=== PATIENT | female | born 1995 | race African-American/Black ===

== ENCOUNTER → 2020-04-19 10:18 | Outpatient (CLI) | payer OTHER, SELFPAY ==
--- NOTE | ~2020-04-19 | US_ITS ---
EXAMINATION: US transvaginal DATE: 04/19/2020 10:51 INDICATION: Pelvic pain Comparison:No prior studies for comparison. TECHNIQUE: Multiple endovaginal sonographic images of the pelvis performed. FINDINGS: The uterus measures 7.7 x 4.9 x 4.6 cm. The endometrial complex measures 12 mm. The right ovary measures 3.6 x 3.5 x 1.7 cm and the left ovary measures 2 x 2.2 x 1.1 cm. There are small follicles in each ovary. There is trace free fluid in the pelvis. There are no abnormal masses seen on either side. IMPRESSION: 1. Mild endometrial thickening. Reviewed, dictated and finalized at location A. N FORMING MACHINE OPERATOR
== END ==
PROVIDERS: Visit Provider Physician Assistant
DX: R10.2 Pelvic and perineal pain (principal)
CPT/HCPCS: 76830

== ENCOUNTER 2020-07-14 12:02 | Outpatient (CLI) | payer OTHER, SELFPAY ==
--- NOTE | ~2020-07-14 | US_ITS ---
EXAMINATION: US venous doppler [facility] DATE: 07/14/2020 12:46 INDICATION: Z bilateral lower limb swelling TECHNIQUE: Marsh scale images without and with compression and Doppler images of the bilateral lower e xtremity veins were obtained. COMPARISON: None FINDINGS: The right common femoral vein, profunda femoral vein, femoral vein, popliteal vein, peroneal trunk, p osterior tibial veins, and greater saphenous vein are patent. The left common femoral vein, profunda femoral vein, femoral vein, popliteal vein, peroneal trunk, po sterior tibial veins, and greater saphenous vein are patent. IMPRESSION: 1. Patent bilateral lower extremity veins. No evidence of deep venous thrombosis. Reviewed, dictated and finalized at location A. ERCIAL ELECTRICIAN IMPRESSION: 1. Patent bilateral lower extremity veins. No evidence of deep venous thrombosi s.
[2020-07-14 12:28] LABS: Basophils Absolute Auto 0.1 K/mm3 (0.0-0.1); Basophils Percent Auto 0.7 % (0.2-1.2); Eosinophils Percent Auto 0.6 % (0-4.4); Hematocrit 33.9 % (37.0-47.0); Hemoglobin 11.7 g/dL (12.0-15.0); Immature Granulocyte Absolute 0.02 K/mm3 (0.00-0.031); Immature Granulocyte Percent A 0.3 % (0-0.5); Lymphocytes Absolute Auto 1.46 K/mm3 (0.9-3.2); Lymphocytes Percent Auto 20.5 % (18.3-44.2); Mean Corpuscular HGB Conc 34.5 g/dl (32-36); Mean Corpuscular Hemoglobin 30.2 pg (26-34); Mean Corpuscular Volume 87.4 fl (80-100); Mean Platelet Volume 11.1 fl (7.4-10.4); Monocytes Absolute Auto 0.5 K/mm3 (0.1-0.6); Monocytes Percent Auto 6.6 % (2.6-8.5); Neutrophils Absolute Auto 5.1 K/mm3 (1.3-6.7); Neutrophils Percent Auto 71.3 % (45.5-73.1); Platelet Count Result 281 k/mm3 (150-375); Red Blood Count 3.88 M/mm3 (4.2-5.4); Red Cell Distribution Width 11.9 % (11.5-14.5); White Blood Count 7.1 K/mm3 (4.5-10.0)
[2020-07-14 12:37] LABS: Anion Gap 6 mmol/L (8-16); Blood Urea Nitrogen 10 mg/dL (7-17); Carbon Dioxide 24 mmol/L (22-30); Chloride 107 mmol/L (98-107); Estimated Glomerular Filt Rate > 60; Glucose 85 mg/dL (65-105); Potassium 3.7 mmol/L (3.4-5.0); Sodium 137 mmol/L (137-145)
[2020-07-14 12:50] LABS: D Dimer 2.35 ug/mL (<0.48)
== END 2020-07-14 12:03 | disposition home or self-care (01) ==
PROVIDERS: PCP Physician Assistant; Visit Provider Physician Assistant
DX: M79.89 Other specified soft tissue disorders (principal)
CPT/HCPCS: 36415; 80048; 85025; 85380; 93970

== ENCOUNTER 2020-07-15 11:07 | Outpatient (CLI) | payer OTHER, SELFPAY ==
--- NOTE | ~2020-07-15 | CT_ITS ---
EXAMINATION: CTA chest PE protocol DATE: 07/15/2020 13:10 INDICATION: Lower limb swelling TECHNIQUE: Computed tomography angiography (CTA) of the chest was performed with 100 mL Omnipaque-350 intravenous contrast timed to evaluate the pulmonary arteries. Coronal maximum intensity projection 3D-reconstructions were created by the technologist. The dose-length product (DLP) was 252.11 mGy-cm. Automated exposure control and iterative reconstruction technique were employed. COMPARISON: None. FINDINGS: The pulmonary arteries are well-opacified. There are pulmonary emboli in subsegmental pulmo nary arterial branches of the lower lobes. The lungs are free of acute opacities. There is no pleural effusion or pneumothorax. No pathologically enlarged thoracic lymph nodes are identified. The heart size is normal. Triangular soft tissue density in the anterior mediastinum likely reflects residual t hymus. IMPRESSION: 1. Pulmonary emboli in subsegmental branches of the lower lobes. Reviewed, dictated and finalized at location A. NCIAL COMPLIANCE MANAGER
[2020-07-15 12:00] LABS: Beta HCG Quantitative < 2.39 mIU/ML
== END 2020-07-15 11:08 | disposition home or self-care (01) ==
PROVIDERS: PCP Physician Assistant; Visit Provider Physician Assistant
DX: Z30.09 Encounter for other general counseling and advice on contraception (principal); I26.99 Other pulmonary embolism without acute cor pulmonale
CPT/HCPCS: 36415; 71275; 84702; Q9967

== ENCOUNTER 2020-07-15 13:30 | Observation (INO) | payer OTHER, SELFPAY ==
[2020-07-15] VITALS (10 sets, daily range): BP systolic 108–151; BP diastolic 57–88; PULSE 66–89; RESP 14–24; TEMP 36.5–36.8; O2SAT 21–100
--- NOTE | 2020-07-15 13:55 | ECG_ITS ---
Measurements Intervals [place] Rate: 72 P: 70 [place]: 159 QRS: 59 QRSD: 86 T: 44 QT: 372 QTc: 410 Interpretive Statements SINUS RHYTHM BASELINE ARTIFACT- I, AVL, V2 NORMAL ECG Electronically Signed On 07-15-2020 14:15:28 CONTENT ASSISTANT by Chucho Cameron D.O.
[2020-07-15 14:22] LABS: Basophils Percent Auto 0.3 % (0.2-1.2); Eosinophils Absolute Auto 0.1 K/mm3 (0-0.3); Eosinophils Percent Auto 0.7 % (0-4.4); Hematocrit 37.3 % (37.0-47.0); Hemoglobin 12.7 g/dL (12.0-15.0); Immature Granulocyte Absolute 0.02 K/mm3 (0.00-0.031); Immature Granulocyte Percent A 0.2 % (0-0.5); Lymphocytes Absolute Auto 2.24 K/mm3 (0.9-3.2); Lymphocytes Percent Auto 24.9 % (18.3-44.2); Mean Platelet Volume 11.4 fl (7.4-10.4); Monocytes Absolute Auto 0.6 K/mm3 (0.1-0.6); Monocytes Percent Auto 6.4 % (2.6-8.5); Neutrophils Absolute Auto 6.1 K/mm3 (1.3-6.7); Neutrophils Percent Auto 67.5 % (45.5-73.1); Platelet Count Result 293 k/mm3 (150-375); Red Blood Count 4.24 M/mm3 (4.2-5.4); Red Cell Distribution Width 12.2 % (11.5-14.5)
[2020-07-15 14:24] LABS: Add Urine Microscopic? NO; Appearance Urine Clear (Clear); Bilirubin Urine Negative (Negative); Blood Urine Negative (Negative); Color Urine Yellow (Yellow); Glucose Urine UA Negative (Negative); Ketones Urine Negative (Negative); Leukocyte Esterase Ur Negative LEU/UL (Negative); Nitrate Urine Negative (Negative); Protein Urine Negative (Negative); Specific Grav Ur > 1.060 (1.001-1.035); Urobilinogen Urine Negative mg/dL (<2.0)
[2020-07-15 14:29] LABS: Prothrombin Time 13.3 Seconds (11.1-14.7)
[2020-07-15 14:35] LABS: Alanine Aminotransferase 16 U/L (4-35); Albumin Level 4.2 g/dL (3.5-5.1); Alkaline Phosphatase 47 U/L (38-126); Anion Gap 12 mmol/L (8-16); Aspartate Amino Transferase 28 U/L (14-36); Bilirubin,Total 0.5 mg/dL (0.2-1.3); Blood Urea Nitrogen 8 mg/dL (7-17); Carbon Dioxide 23 mmol/L (22-30); Chloride 101 mmol/L (98-107); Estimated CRCL calculation 111 ml/min; Estimated Glomerular Filt Rate > 60; Glucose 84 mg/dL (65-105); Potassium 3.7 mmol/L (3.4-5.0); Sodium 136 mmol/L (137-145)
[2020-07-15 14:44] LABS: NT Pro B Type Natriuretic Pept 113 PG/ML (5-100)
[2020-07-15 14:46] LABS: Troponin I < 0.012 ng/mL (0.000-0.034)
--- NOTE | 2020-07-15 15:24 | ED.GENADULT ---
HPI - General Adult General Chief complaint: Recheck/Abnormal Lab/Rx Stated complaint: PE - sent from CT scan Time Seen by Provider: 07/15/20 13:54 Source: patient Mode of arrival: ambulatory Limitations: no limitations History of Present Illness HPI narrative: Patient is a 24-year-old female who presents from imaging center after having positive CAT scan for pulmonary embolus patient on arrival in the room in no distress denies chest pain shortness of breath patient has been having some toe pain bilaterally had ultrasound ordered by primary care which was negative for DVT also had a D-dimer drawn which led to the CAT scan imaging. Patient denies similar occurrence in the past or any other complaints presents in no distress denying any pain Related Data Home Medications Medication Instructions Recorded Confirmed No Home Medications 07/15/20 07/15/20 Allergies Allergy/AdvReac Type Severity Reaction Status Date / Time Sulfa (Sulfonamide Allergy Other Verified 07/15/20 14:00 Antibiotics) Review of Systems Review of Systems: All systems reviewed & are unremarkable except as noted in HPI and below PMFSH Social History Social History (Updated 07/15/20 @ 15:26 by Bon Olivas PA-C) Social History: The patient lives in [place]. Smoking status: Never smoker Exam Narrative: Exam Narrative: GENERAL: Well-appearing, well-nourished, and in no acute distress. HEAD: Normocephalic, atraumatic. EYES: PERRLA and EOMI. ENT: Nares clear, no rhinorrhea or epistaxis. Mucous membranes moist. CHEST: Clear to auscultation. No respiratory distress. No wheezes rales or rhonchi HEART: Regular rate and rhythm. No murmur heard. Normal peripheral pulses. EXTREMITIES: Normal range of motion. No edema. SKIN: Warm, dry, no rash. NEURO: No focal deficits. Alert and oriented x3. Neurovascularly intact. Capillary refill less than 2-second PSYCH: Normal mood and affect. Course Consultations Consultation #1: Spoke with Chanda the hospitalist who is agreed to accept the patient Spoke with patient's primary care who indicated the testing and reasoning Date: 07/15/20 Time: 15:27 Vital Signs Vital signs: Vital Signs Temperature 97.7 F 07/15/20 13:37 Pulse Rate 84 07/15/20 13:37 Respiratory Rate 17 07/15/20 13:37 Blood Pressure 136/88 07/15/20 13:37 Pulse Oximetry 100 07/15/20 13:37 Temperature 97.7 F 07/15/20 13:37 Pulse Rate 84 07/15/20 13:37 Respiratory Rate 17 07/15/20 13:37 Blood Pressure 136/88 07/15/20 13:37 Pulse Oximetry 100 07/15/20 13:37 Medical Decision Making MDM Narrative Medical decision making narrative: Patient with pulmonary embolus hemodynamically stable given Lovenox in the emergency department we placed in hospital to initiate her anticoagulation ABCs and vital signs intact and stable Vital Signs Vital Signs: Vital Signs Temperature 97.7 F 07/15/20 13:37 Pulse Rate 84 07/15/20 13:37 Respiratory Rate 17 07/15/20 13:37 Blood Pressure 136/88 07/15/20 13:37 Pulse Oximetry 100 07/15/20 13:37 Temperature 97.7 F 07/15/20 13:37 Pulse Rate 84 07/15/20 13:37 Respiratory Rate 17 07/15/20 13:37 Blood Pressure 136/88 07/15/20 13:37 Pulse Oximetry 100 07/15/20 13:37 Lab Data Result diagrams: 07/15/20 14:14 07/15/20 14:14 Labs: Lab Results 07/15/20 07/15/20 07/15/20 Range/Units 14:14 14:14 14:14 WBC 9.0 (4.5-10.0) K/mm3 RBC 4.24 (4.2-5.4) M/mm3 Hgb 12.7 (12.0-15.0) g/dL Hct 37.3 (37.0-47.0) % MCV 88.0 (80-100) fl MCH 30.0 (26-34) pg MCHC 34.0 (32-36) g/dl RDW 12.2 (11.5-14.5) % Plt Count 293 (150-375) k/mm3 MPV 11.4 H (7.4-10.4) fl Immature Gran % (Auto) 0.2 (0-0.5) % Neut % (Auto) 67.5 (45.5-73.1) % Lymph % (Auto) 24.9 (18.3-44.2) % [place] % (Auto) 6.4 (2.6-8.5) % Eos % (Auto) 0.7 (0-4.4) % Baso % (Auto)
--- NOTE | 2020-07-15 17:00 | PM.IMHP ---
H&P: HPI History of Present Illness Date/Time: 07/15/20 17:00 Chief Complaint: Pulmonary embolism noted on outpatient chest CTA. Narrative: See healthy 24-year-old female presented to the emergency department earlier today for further evaluation after she was found to have pulmonary emboli on CTA of the chest done today as an outpatient. She was started on a new control regimen (Xulane patch) about a month and half ago and earlier this week she had a follow-up with her primary care provider at which time she reported having swelling and discomfort in some of her toes. This prompted blood work and lower extremity venous Doppler ultrasounds. Her D-dimer did come back elevated however no DVT was noted on Doppler. A CTA of the chest done today did show bilateral, segmental lower lobe pulmonary emboli and she is being admitted in this setting. No family history of blood clots to her knowledge, however she tells me that her dad has had several ?aneurysms? leading to lower extremity amputation however she cannot really elaborate on that. She has no known history of autoimmune disease although she has had several lab tests including punch biopsy of a skin lesion to workup intermittent, scattered hyperpigmented and pruritic patches and plaques that pop up on her shins, forearms, and chest. The toe swelling is also accompanied by hyper pigmentation, pruritus, and occasional lesions and she was recently told she probably had chilblains. At the time of my evaluation she has no complaints and denies recent travel, history of blood clots, lower extremity edema (aside from the toes), chest pleuritic pain, racing heart, shortness of breath, syncope, and near syncope. Review of Systems Review of Systems: Narrative: Twelve systems were reviewed with pertinent positives and negatives as per HPI. No recent cold or flu symptoms. She denies recent travel. No epistaxis, gingival bleeding, melena, hematochezia, or hematuria. She denies easy bruising and petechiae. She did have at heavy menstrual cycle with a lot of clots last month, which is unusual for her. Weight has remained stable. No joint pain, swelling, or erythema. Except as documented, all other systems were reviewed and are negative. FOR[facility] Past Medical History Medical History (Updated 07/15/20 @ 20:58 by Chanda Harrington PA-C) Bilateral pulmonary embolism (~07/15/20) Surgical History Surgical History (Updated 07/15/20 @ 20:56 by Chanda Harrington PA-C) No history of previous surgery Family History Family History (Updated 07/15/20 @ 18:01 by Chanda Harrington PA-C) Father Aneurysm Mother Breast cancer Arthritis Social History Social History (Updated 07/15/20 @ 18:01 by Chanda Harrington PA-C) Social History: The patient lives in [place] with her boyfriend. 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 She designates her mother, Brenna Rogers, as her surrogate decision maker and she wishes to be a full code. Smoking status: Never smoker Alcohol intake: never Substance use: never Substance use type: does not use Gender identity (if verbalized by the patient): Female Sexual Orientation (if Verbalized by the Patient): Straight or Heterosexual Spiritual care concerns: No Meds Home Medications and Allergies Home Medications Medication Instructions Recorded Confirmed Type No Home Medications 07/15/20 07/15/20 History Allergies Allergy/AdvReac Type Severity Reaction Status Date / Time Sulfa (Sulfonamide Allergy Other Verified 07/15/20 14:00 Antibiotics) Vital Signs Vital Signs - 24 hr 07/15/20 13:37 Temperature 97.7 F Pulse Rate 84 Respiratory Rate 17 Blood Pressure 136/88 Pulse Oximetry 100 Exam Narrative: Exam Narrative: General: Well-developed female sitting up in bed in no distress. Weight: 83.3 kilograms. BMI: 31.5. HEENT: Normocephalic, atraumatic. PERRL, EOMI. S
--- NOTE | 2020-07-15 17:29 | PC.NURSE ---
This patient, Heather Rogers, was admitted to Medical Room 252-. Patient/family oriented to hospital policies and general routines including ID bracelet, bed and alarms, visiting hours, pain management, procedures, bathroom and other care routines, personal items, smoking policy, room service/diet, and visiting hours. Information on how to activate the Rapid Response Team has been discussed. Patient/Family are encouraged to report perceived risks to care and to ask questions if they do not understand what they are told or what they should do.
[2020-07-15] MEDS: ENOXAPARIN 100 MG/ML SYRINGE 85 MG SUB-Q (17:48)
[2020-07-15 21:54] LABS: CRP 0.6 mg/dL (<1.0)
[2020-07-15 22:07] LABS: Erythrocyte Sedimentation Rate 41 mm/hr (0-20)
[2020-07-16] VITALS: PULSE 72
[2020-07-16 04:00] VITALS: PULSE 76
[2020-07-16 05:42] VITALS: BP 116/70; PULSE 77; RESP 14; TEMP 36.7; O2SAT 99
[2020-07-16 05:53] LABS: Hematocrit 34.1 % (37.0-47.0); Hemoglobin 11.6 g/dL (12.0-15.0); Mean Corpuscular Hemoglobin 29.4 pg (26-34); Mean Corpuscular Volume 86.3 fl (80-100); Mean Platelet Volume 11.3 fl (7.4-10.4); Platelet Count Result 294 k/mm3 (150-375); Red Blood Count 3.95 M/mm3 (4.2-5.4); Red Cell Distribution Width 11.9 % (11.5-14.5); White Blood Count 6.8 K/mm3 (4.5-10.0)
[2020-07-16 08:00] VITALS: PULSE 74
[2020-07-16] MEDS: APIXABAN 5 MG TABLET 10 MG PO (09:03)
[2020-07-16 09:30] VITALS: BP 115/61; PULSE 74; RESP 14; TEMP 36.3; O2SAT 100
--- NOTE | 2020-07-16 10:21 | PM.DS ---
DS: Admitting Diagnosis Admitting Diagnosis Admitting Diagnosis: pulmonary embolism DS: Discharge Diagnosis Discharge Diagnosis (1) Bilateral pulmonary embolism: Onset Date: ~07/15/20 Code(s): I26.99 - Other pulmonary embolism without acute cor pulmonale Status: Acute Assessment and Plan: She had an outpatient CTA of the chest which demonstrated pulmonary emboli in subsegmental branches of the lower lobes. likely provoked due to estrogen use as she had been started on a new control regimen (Xulane patch) about 1 month ago. venous Doppler negative for DVT. She remained asymptomatic. Her vital signs were stable and she did not require supplemental oxygen. she had no evidence of heart strain on imaging and troponin and BNP were negative, thus there was no indication for echocardiogram. She was started on Eliquis. I spent extensive time discussing this medication with her. She understands risk of bleeding and will monitor symptoms closely. Given a possible family history of clotting disorder, as well as concern for possible autoimmune disease, she had labs including coagulation panel and AYESHA to rule out hereditary or autoimmune etiologies for PE. I spoke with her primary care provider via phone who will follow-up on these labs as an outpatient. (2) Toe swelling: Code(s): M79.89 - Other specified soft tissue disorders Status: Acute Assessment and Plan: Patient began having swelling in her left 4th and 5th toes. This prompted lab work which showed elevated D-dimer, which prompted CTA. She reports that swelling has improved. As noted above, labs for coagulopathy versus autoimmune disorder are pending and will be monitored by PCP. (3) Hyperpigmented skin lesion: Code(s): L81.9 - Disorder of pigmentation, unspecified Status: Acute Assessment and Plan: She reports intermittent hyper pigmentation of skin as well as pruritic patches and plaques that pop up on shins, forearms, and chest. she reports having a punch biopsy of 1 of the patches and was told this was not eczema or psoriasis. Autoimmune panel pending as described above. DS: Summary Hospital Course Reason for hospitalization: pulmonary embolism Hospital Course: date of admission: 07/15/2020 date of discharge: 07/16/2020 Heather Rogers is a healthy 24-year-old female who presented to the emergency department on 07/15/2020 at the direction of her primary care provider after having been diagnosed with a pulmonary embolism as an outpatient. If she had an elevated D-dimer on outpatient labs which prompted CTA. She was asymptomatic and was not in any respiratory distress. Upon presentation to the emergency department, her vital signs are stable and she did not have any episodes of hypoxia, CBC and BMP unremarkable, troponin negative, and BNP 113. she was admitted to the hospitalist service for further evaluation and management. Please see above for further details. She was started on Eliquis which she will continue as an outpatient. We discussed this medication at length and she understands risks for bleeding. She will need to follow-up with her primary care provider within 1 week for further evaluation and to follow-up on labs. I spoke with her primary care provider via phone. She was feeling very well and was eager for discharge home. She was determined to be stable for discharge and felt to no longer require inpatient care. We discussed worrisome signs and symptoms for which to return and she was educated on her medications. She was discharged in hemodynamically stable condition on 07/16/2020. Status at Discharge Functional status at discharge: independent ambulation Overall status at discharge: patient is back to baseline Time Spent with Patient Time attestation: Total time spent providing and/or coordinating discharge services: 45 minutes Time spent: Greater than 30 minutes Exam Narrative:
--- NOTE | 2020-07-16 11:43 | PC.NURSE ---
On 07/16/20, the student, [Destiny Villarreal], provided care and completed [facility] documentation on this patient. I have reviewed the student's documentation and agree with the findings.
[2020-07-19 03:35] LABS: Anti Cardio Antibody IgM <12 MPL (<=12); Anti Cardiolipin Antibody IgA <11 APL (<=11); Anti Cardiolipin Antibody IgG <14 GPL (<=14)
[2020-07-19 20:35] LABS: Antithrombin III Activity 95 % normal (80-135)
[2020-07-20 06:00] LABS: Hexagonal Phase Confirm Negative (Negative); Lupus dRVVT Confirmation Positive (Negative)
[2020-07-20 08:16] LABS: Lupus dRVVT Screen 47 sec (<=45); PTT-LA Screen 41 sec (<=40)
[2020-07-22 13:38] LABS: Protein C Antigen 101 % (70-140)
== END 2020-07-16 11:30 | disposition home or self-care (01) ==
LOC: ANHED 14:13 → ANH2MED 16:03
PROVIDERS: Emergency Medicine Emergency Medical Services; Physician Assistant; Admitting Provider Internal Medicine; Emergency Provider Emergency Medicine; PCP Physician Assistant; Visit Provider Physician Assistant
DX: I26.99 Other pulmonary embolism without acute cor pulmonale (principal); M79.89 Other specified soft tissue disorders; L81.9 Disorder of pigmentation, unspecified; R06.02 Shortness of breath
CPT/HCPCS: 36415; 80053; 81003; 81025; 81240; 81241; 83880; 84484; 85025; 85027; 85300; 85302; 85303; 85306; 85597; 85598; 85610; 85613; 85652; 85730; 86038; 86140; 86147; 93005; 96372; 99285; A9270; G0378; J1650

== ENCOUNTER 2020-07-21 11:26 | Outpatient (CLI) | payer OTHER, SELFPAY ==
--- NOTE | ~2020-07-21 | US_ITS ---
EXAMINATION: US art doppler w press LE BI DATE: 07/21/2020 12:10 INDICATION: Discoloration of the left toes. TECHNIQUE: Segmental pressures and plethysmographic and Doppler waveforms of the brachial and lower e xtremity arteries were obtained. COMPARISON: None. FINDINGS: Right and left brachial artery pressures of 122 mm Hg and 121 mm Hg, respectively, are concordant (no rmal difference <= 30 mmHg). The right and left high-thigh pressure indices are 1.49 and 1.35, respec tively (normal > 1.2). The right ankle-brachial index (JAH) is 1.07 (normal >= 0.9-1). The right great toe-brachial index (T BI) is 0.84 (normal >= 0.6-0.8). The right lower extremity segmental pressure gradients are increased between the high right thigh in the [id number] popliteal artery (normal gradients <= 20-30 mmHg between adjacent levels on the same leg or the same levels on the two legs). Arterial waveforms are t riphasic at the right common femoral and superficial femoral recent and biphasic in the more distal a rteries with brisk systolic upstrokes throughout. The left JAH is 1.07. The left TBI is 0.71. The left lower extremity segmental pressure gradients are borderline increased between the left high thigh and the [id number] left popliteal artery. Arter ial waveforms are triphasic at the left common femoral and superficial femoral recent and biphasic in the more distal arteries with brisk systolic upstrokes throughout. IMPRESSION: 1. Normal lateral ABIs and TBIs. No significant arterial occlusive disease. Reviewed, dictated and finalized at location A. AR CARE AIDE
== END 2020-07-21 11:27 | disposition home or self-care (01) ==
PROVIDERS: PCP Physician Assistant; Visit Provider Physician Assistant
DX: L81.9 Disorder of pigmentation, unspecified (principal); R20.9 Unspecified disturbances of skin sensation
CPT/HCPCS: 93923

== ENCOUNTER 2021-03-21 09:22 | Outpatient (CLI) | payer OTHER, SELFPAY ==
[2021-03-21 09:48] LABS: Basophils Absolute Auto 0.1 K/mm3 (0.0-0.1); Basophils Percent Auto 1.1 % (0.2-1.2); Eosinophils Absolute Auto 0.1 K/mm3 (0-0.3); Eosinophils Percent Auto 1.5 % (0-4.4); Hematocrit 35.1 % (37.0-47.0); Hemoglobin 12.2 g/dL (12.0-15.0); Immature Granulocyte Absolute 0.01 K/mm3 (0.00-0.031); Immature Granulocyte Percent A 0.2 % (0-0.5); Lymphocytes Absolute Auto 1.68 K/mm3 (0.9-3.2); Lymphocytes Percent Auto 36.8 % (18.3-44.2); Mean Corpuscular HGB Conc 34.8 g/dl (32-36); Mean Corpuscular Hemoglobin 30.5 pg (26-34); Mean Corpuscular Volume 87.8 fl (80-100); Mean Platelet Volume 10.9 fl (7.4-10.4); Monocytes Absolute Auto 0.4 K/mm3 (0.1-0.6); Monocytes Percent Auto 7.9 % (2.6-8.5); Neutrophils Absolute Auto 2.4 K/mm3 (1.3-6.7); Neutrophils Percent Auto 52.5 % (45.5-73.1); Platelet Count Result 285 k/mm3 (150-375); Red Cell Distribution Width 11.8 % (11.5-14.5); White Blood Count 4.6 K/mm3 (4.5-10.0)
[2021-03-21 09:59] LABS: Anion Gap 7 mmol/L (8-16); Blood Urea Nitrogen 12 mg/dL (7-17); Calcium 9.3 mg/dL (8.4-10.2); Carbon Dioxide 26 mmol/L (22-30); Chloride 105 mmol/L (98-107); Estimated Glomerular Filt Rate > 60; Glucose 89 mg/dL (65-110); Potassium 3.9 mmol/L (3.4-5.0); Sodium 138 mmol/L (137-145)
[2021-03-21 10:19] LABS: Free T4 Free Thyroxine 1.21 ng/mL (0.78-2.19)
[2021-03-21 10:21] LABS: Beta HCG Quantitative < 2.39 mIU/ML
[2021-03-21 10:33] LABS: Thyroid Stimulating Hormone 0.633 uIU/mL (0.465-4.680)
== END 2021-03-21 09:23 | disposition home or self-care (01) ==
LOC: ANHLAB 09:25
PROVIDERS: PCP Physician Assistant; Visit Provider Physician Assistant
DX: N92.6 Irregular menstruation, unspecified (principal)
CPT/HCPCS: 36415; 80048; 84439; 84443; 84702; 85025

== ENCOUNTER 2022-07-28 12:18 | Emergency (ER) | payer OTHER, SELFPAY ==
--- NOTE | ~2022-07-28 | XR_ITS ---
EXAMINATION: XR wrist LT 2V DATE: 07/28/2022 13:41 INDICATION: Left wrist pain. TECHNIQUE: 2 views of left wrist were obtained. COMPARISON: None. FINDINGS: Bone alignment is normal. No fracture. Joint spaces are normal. IMPRESSION: 1. Normal left wrist. Reviewed, dictated and finalized at location A. STRIAL MAINTENANCE MANAGER IMPRESSION: 1. Normal left wrist.
[2022-07-28 13:57] VITALS: BP 128/83; PULSE 72; RESP 18; TEMP 36.7; O2SAT 100
--- NOTE | 2022-07-28 14:28 | ED.UPPEXIN ---
HPI - Extremity Injury (Upper) General Chief Complaint: Extremity Injury, Upper Stated Complaint: wrist pain Time Seen by Provider: 07/28/22 14:13 History of Present Illness HPI narrative: Patient is a 26-year-old female here for evaluation of left wrist pain over the past 3 months. Patient states the pain is worse with movement of her wrist and thumb and is worse at nighttime. She has not tried any medicine for her symptoms. Denies any weakness, numbness or tingling in her hand. Related Data Allergies Allergy/AdvReac Type Severity Reaction Status Date / Time Sulfa (Sulfonamide Allergy Other Verified 07/15/20 14:00 Antibiotics) Review of Systems Review of Systems: Gen.: Denies fevers or chills Eyes: Denies eye pain or visual change ENT: Denies congestion Respiratory: Denies shortness of breath or cough CV: Denies chest pain or palpitations GI: Denies abdominal pain nausea, emesis or diarrhea denies burning, urgency, frequency or hematuria Musculoskeletal: Reports left wrist pain Neuro: Denies numbness, tingling, weakness or focal weakness Skin: Denies rash Except as documented, all other systems reviewed and negative [facility] Past Medical History Medical History Bilateral pulmonary embolism (~07/15/20) Surgical History Surgical History No history of previous surgery Family History Family History (Updated 07/15/20 @ 18:01 by Chanda Harrington PA-C) Father Aneurysm Mother Breast cancer Arthritis Social History Social History (Updated 07/15/20 @ 18:01 by Chanda Harrington PA-C) Social History: The patient lives in [place] with her boyfriend. 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 She designates her mother, Brenna Rogers, as her surrogate decision maker and she wishes to be a full code. Smoking status: Never smoker Alcohol intake: never Substance use: never Substance use type: does not use Gender identity (if verbalized by the patient): Female Sexual Orientation (if Verbalized by the Patient): Straight or Heterosexual Spiritual care concerns: No Exam Narrative: Gen: Alert, oriented, no acute disease Eyes: EOMI, no icterus Pulm: Respirations even and unlabored, symmetric thorax expansion, no audible stridor or visible cyanosis CV: Strong radial pulse GI: No distension, no voluntary/involuntary guarding Neuro: AOx4, moves all extremities without apparent difficulty or weakness, follows commands MSK: Ezequiel test positive on the left. No bony tenderness palpation along the snuffbox of the wrist or the carpal bones. Full range of motion the fingers. Sensation intact throughout entirety of hand. Skin: No jaundice, no visible bruising, rashes, lesions or wounds on exposed skin Psych: Normal mood/affect, insight/judgement good, adequate fund of knowledge, recent/remote memory intact Course Vital Signs Vital signs: Vital Signs Temperature 98.1 F 07/28/22 13:57 Pulse Rate 72 07/28/22 13:57 Respiratory Rate 18 07/28/22 13:57 Blood Pressure 128/83 07/28/22 13:57 Pulse Oximetry 100 07/28/22 13:57 Oxygen Delivery Room Air 07/28/22 13:57 Temperature 98.1 F 07/28/22 13:57 Pulse Rate 72 07/28/22 13:57 Respiratory Rate 18 07/28/22 13:57 Blood Pressure 128/83 07/28/22 13:57 Pulse Oximetry 100 07/28/22 13:57 Oxygen Delivery Room Air 07/28/22 13:57 MDM - Extremity Injury (Upper) MDM Narrative Medical decision making narrative: 26-year-old right-handed female here for evaluation of atraumatic left wrist pain over the past several months. No bony tenderness to palpation but her Ezequiel's test is positive on the left consistent with de Quervain's tenosynovitis. Plain films are negative. Will DC home with splinting, supportive care and hand follow-up if her symptoms persist.
== END 2022-07-28 14:37 | disposition home or self-care (01) ==
PROVIDERS: Emergency Provider Physician Assistant; PCP Physician Assistant
DX: M65.4 Radial styloid tenosynovitis [de Quervain] (principal); Z86.711 Personal history of pulmonary embolism; Z79.01 Long term (current) use of anticoagulants
CPT/HCPCS: 73100; 99283

== ENCOUNTER 2023-01-22 11:12 | Emergency (ER) | payer OTHER, SELFPAY ==
[2023-01-22 11:15] VITALS: BP 137/74; PULSE 93; RESP 16; TEMP 36.3; O2SAT 100
--- NOTE | 2023-01-22 13:01 | ED.EAR ---
HPI - Ear Problem General Chief complaint: Ear Stated complaint: ringing in both ears, headache Time Seen by Provider: 01/22/23 12:10 History of Present Illness HPI Narrative: Patient is a 27-year-old female presenting with migraine and tinnitus. Patient states that she has struggled with intermittent migraines for several years. States that she had a CT scan several years ago and it was normal. States that for the last several months she has had intermittent ringing in her ears that seems to be associated with her headaches. She saw an ear nose throat doctor who did not start her on anything. States that currently she has a migraine and she is concerned that it is going to get worse. She denies fevers or chills, numbness or weakness, vision changes, chest pain, shortness of breath, abdominal pain, vomiting, diarrhea, dysuria, leg swelling. Related Data Allergies Allergy/AdvReac Type Severity Reaction Status Date / Time Sulfa (Sulfonamide Allergy Other Verified 01/22/23 11:30 Antibiotics) Review of Systems Review of Systems: All systems reviewed & are unremarkable except as noted in HPI and below PMFSH Past Medical History Medical History Bilateral pulmonary embolism (~07/15/20) Surgical History Surgical History No history of previous surgery Family History Family History Father Aneurysm Mother Breast cancer Arthritis Social History Social History Social History: The patient lives in [place] with her boyfriend. 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. She designates her mother, Brenna Rogers, as her surrogate decision maker and she wishes to be a full code. Smoking status: Never smoker Alcohol intake: never Substance use: never Substance use type: does not use Gender identity (if verbalized by the patient): Female Sexual Orientation (if Verbalized by the Patient): Straight or Heterosexual Spiritual care concerns: No Exam Narrative: GENERAL: Well-appearing, well-nourished, and in no acute distress. Pleasant and cooperative HEAD: Normocephalic, atraumatic. EYES: PERRLA and EOMI. ENT: TMs normal bilaterally, no canal abnormalities, Mucous membranes moist. NECK: Supple. CHEST: Clear to auscultation. No respiratory distress. HEART: Regular rate and rhythm ABDOMEN: Soft, nontender, nondistended EXTREMITIES: Normal range of motion. No edema. SKIN: Warm, dry, no rash. NEURO: No focal deficits. Alert and oriented x3. PSYCH: Normal mood and affect. Course Vital Signs Vital signs: Vital Signs Temperature 97.4 F L 01/22/23 11:15 Pulse Rate 93 01/22/23 11:15 Respiratory Rate 16 01/22/23 11:15 Blood Pressure 137/74 01/22/23 11:15 Pulse Oximetry 100 01/22/23 11:15 Oxygen Delivery Room Air 01/22/23 11:15 Temperature 97.4 F L 01/22/23 11:15 Pulse Rate 71 01/22/23 13:49 Respiratory Rate 15 01/22/23 13:49 Blood Pressure 114/67 01/22/23 13:49 Pulse Oximetry 100 01/22/23 13:49 Oxygen Delivery Room Air 01/22/23 11:15 Medical Decision Making MDM Narrative Medical decision making narrative: Patient is a 27-year-old female presenting with intermittent migraines and tinnitus. Vitals are stable. Exam remarkable for the above. Do not feel that imaging is warranted at this time. She denies any infectious or systemic symptoms, do not think blood work is necessary. Will treat with a migraine cocktail and reevaluate. Patient reports resolution of her headache following the migraine cocktail. She is asking to go home which I think is reasonable. We will provide short course of Fioricet for headaches as well as the number for neurology. Also advised that she follow-up with primary care
[2023-01-22] MEDS: SODIUM CHLORIDE 0.9% IV 1,000 ML 999 ML IV CONT (13:09)
[2023-01-22] MEDS: diphenhydrAMINE HCl INJ 50 MG/ML VIAL 25 MG IV PUSH (13:09)
[2023-01-22] MEDS: PROCHLORPERAZINE EDISYLATE 10 MG/2 ML VIAL 5 MG IV PUSH (13:10)
[2023-01-22] MEDS: KETOROLAC 15 MG/ML VIAL (*BKC) IV PUSH (13:10)
[2023-01-22 13:49] VITALS: BP 114/67; PULSE 71; RESP 15; O2SAT 100
== END 2023-01-22 14:29 | disposition home or self-care (01) ==
PROVIDERS: Emergency Provider Emergency Medicine; PCP Nurse Practitioner Family
DX: G43.909 Migraine, unspecified, not intractable, without status migrainosus (principal); H93.19 Tinnitus, unspecified ear; Z86.711 Personal history of pulmonary embolism
CPT/HCPCS: 96361; 96374; 96375; 99284; J0780; J1200; J1885; J7030

== ENCOUNTER → 2023-01-24 12:14 | Outpatient (CLI) | payer OTHER, SELFPAY ==
--- NOTE | ~2023-01-24 | XR_ITS ---
XR knee RT 3V DATE: 01/24/2023 13:31 INDICATION: Chronic right knee pain TECHNIQUE: 3 views COMPARISON: None FINDINGS: No fracture or dislocation or joint effusion. No radiopaque intra-articular loose body or c hondrocalcinosis. Joint spaces are well preserved. No periosteal reaction or bone destruction. IMPRESSION: Negative Reviewed, dictated and finalized at location B. IMPRESSION: Negative
--- NOTE | ~2023-01-24 | XR_ITS ---
XR knee LT 3V DATE: 01/24/2023 13:31 INDICATION: Knee pain TECHNIQUE: 3 views COMPARISON: None FINDINGS: No fracture or dislocation or joint effusion. No periosteal reaction or bone destruction. T he spaces are well preserved. No radiopaque intra-articular loose body or chondrocalcinosis. IMPRESSION: Negative Reviewed, dictated and finalized at location B. IMPRESSION: Negative
--- NOTE | ~2023-01-24 | XR_ITS ---
XR hip BI 2V w AP pelvis DATE: 01/24/2023 13:31 INDICATION: Pelvis and bilateral hip pain TECHNIQUE: AP pelvis. AP and lateral views of each hip. COMPARISON: None FINDINGS: No pelvic fracture or bone destruction. The pubic symphysis and sacral iliac joints are int act. Mild osteitis pubis. Hip joint spaces are symmetric and well preserved. Slight periarticular spurring of the left femoral head. IMPRESSION: Minimal left hip osteoarthritis Mild osteoarthritis. This Reviewed, dictated and finalized at location B.
--- NOTE | ~2023-01-24 | XR_ITS ---
XR lumbar spine 2-3V DATE: 01/24/2023 13:31 INDICATION: Back pain TECHNIQUE: AP, lateral, coned lateral lumbosacral views COMPARISON: None FINDINGS: There is slight levoscoliosis. There is slight anterolisthesis at L4-5. Otherwise no fracture, bone destruction, spondylolysis or sp ondylolisthesis. Lumbar and lumbosacral interspaces are well preserved. The sacroiliac joints are int act. IMPRESSION: Slight levoscoliosis Slight anterolisthesis at L4-5 Reviewed, dictated and finalized at location B.
== END ==
PROVIDERS: PCP Nurse Practitioner Family; Visit Provider Nurse Practitioner Family
DX: M25.50 Pain in unspecified joint (principal); M54.50 Low back pain, unspecified; M16.0 Bilateral primary osteoarthritis of hip
CPT/HCPCS: 72100; 73521; 73562